=== PATIENT | male | born 1990 | race Hispanic/Latino ===

== ENCOUNTER 2017-12-21 11:42 | Emergency (ER) | payer SELFPAY ==
[2017-12-21] MEDS ORDERED: KETOROLAC TROMETHAMINE 30MG/ML ONE (12:23)
[2017-12-21] MEDS ORDERED: HYDROCODONE/ACETAMINOPHEN 10/325 MG TAB ONE (12:23)
[2017-12-21] MEDS ORDERED: MORPHINE SULFATE 8 MG/ML VIAL ONE (14:08)
== END 2017-12-21 15:29 | disposition home or self-care (01) ==
LOC: EDH 11:42
DX: M54.16 Radiculopathy, lumbar region (principal); W18.11XA Fall from or off toilet without subsequent striking against object, initial encounter; Y93.89 Activity, other specified; Y92.89 Other specified places as the place of occurrence of the external cause; Y99.8 Other external cause status
CPT/HCPCS: 72100; 73502; 96372 ×2; 99284; J1885; J2270